=== PATIENT | female | born 1990 | race American Indian/Alaskan Native ===

== ENCOUNTER 2018-11-09 05:15 | Inpatient (IN) | payer OTHER ==
[2018-11-09] MEDS ORDERED: REGLAN IV ONE (06:02)
[2018-11-09] MEDS ORDERED: PEPCID IV ONE (06:02)
[2018-11-09] MEDS ORDERED: BICITRA PO ONE (06:02)
[2018-11-09 06:47] LABS: Basophils % (Auto) 0.4 % (0.0-1.8); Eosinophils # (Auto) 0.1 K/mm3 (0.0-0.4); Eosinophils % (Auto) 1.2 % (0.0-4.3); Hematocrit 35.4 % (30.3-42.9); Hemoglobin 11.9 gm/dl (10.1-14.3); Lymphocytes # (Auto) 1.5 K/mm3 (1.2-5.4); Lymphocytes % (Auto) 21.2 % (13.4-35.0); Mean Corpuscular HGB Conc 34 % (30-34); Mean Corpuscular Volume 90 fl (79-97); Monocytes # (Auto) 0.6 K/mm3 (0.0-0.8); Monocytes % (Auto) 8.9 % (0.0-7.3); Platelet Count 121 K/mm3 (140-440); Red Blood Count 3.95 M/mm3 (3.65-5.03); Red Cell Distribution Width 15.5 % (13.2-15.2)
[2018-11-09] MEDS ORDERED: ANCEF/STERILE WATER 2 GM/20 ML 2 GM/20 ML SYRINGE IV ONE (06:47)
[2018-11-09] MEDS ORDERED: LACTATED RINGERS 1,000 ML IV SCH (07:00)
[2018-11-09] MEDS ORDERED: PITOCin/NS 20 UNIT/1000ML DRIP 20 UNITS/1,000 ML BAG IV SCH ×2 (07:00→10:30)
--- NOTE | 2018-11-09 07:27 | Anesthesia Day of Surgery ---
Anesthesia Day of Surgery - Day of Surgery Patient Examined: Yes Patient H&P Reviewed: Yes Patient is NPO: Yes
--- NOTE | 2018-11-09 07:27 | Anesthesia Consultation ---
Anesthesia Consult and Med Hx Date of service: 11/09/18 - Airway Anesthetic Teeth Evaluation: Good ROM Head & Neck: Adequate Mental/Hyoid Distance: Adequate Mallampati Class: Class II Intubation Access Assessment: Good - Pulmonary Exam CTA: Yes - Cardiac Exam Cardiac Exam: RRR - Pre-Operative Health Status ASA Pre-Surgery Classification: ASA2 Proposed Anesthetic Plan: Spinal - Pulmonary Hx Asthma: No COPD: No Hx Pneumonia: No - Cardiovascular System Hx Hypertension: No - Central Nervous System Hx Seizures: No Hx Psychiatric Problems: No - Endocrine Hx Renal Disease: No Hx End Stage Renal Disease: No Hx Hypothyroidism: No Hx Hyperthyroidism: No - Hematic Hx Anemia: No Hx Sickle Cell Disease: No - Other Systems Hx Alcohol Use: No
[2018-11-09] MEDS ORDERED: DEXMEDETOMIDINE IV ONE (07:35)
--- NOTE | 2018-11-09 07:35 | History and Physical Report ---
History of Present Illness Date of examination: 11/09/18 Date of admission: 11/09/18 05:15 Chief complaint: Term , X2 previous deliveries. Here for c/section. History of present illness: 39+4wks. X2 previous deliveries. 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 History: herpes (On suppressive meds[valtrex]) - Obstetrical History Expected Date of Delivery: 11/12/18 Actual Gestation: 39 Week(s) 4 Day(s) : 4 Para: 3 Hx # Term Pregnancies: 4 Medications and Allergies Allergies Allergy/AdvReac Type Severity Reaction Status Date / Time No Known Allergies Allergy Verified 10/08/13 20:16 Home Medications Medication Instructions Recorded Confirmed Last Taken Type Fluconazole [Diflucan TAB] 150 mg PO ONCE #1 tablet 04/14/15 Unknown Rx Active Meds: Active Medications Ephedrine Sulfate (Ephedrine Sulfate) 10 mg IV Q2M PRN PRN Reason: Hypotension Oxytocin/Sodium Chloride (Pitocin/Ns 20 Unit/1000ml Drip) 20 units in 1,000 mls @ 0 mls/hr IV TITR [place] Lactated Ringer's (Lactated Ringers) 1,000 mls @ 2,250 mls/hr IV PREOP [place] Stop: 11/10/18 07:27 Fentanyl/Bupivacaine/Sodium Chlor (Fentanyl-Bupiv 2 Mcg/Ml-0.125%) 200 mcg in 100 mls @ 12 mls/hr EPIDURAL TITR [place]; Protocol Naloxone HCl (Narcan 2 Mg/2 Ml) 0.2 mg IV Q5M PRN PRN Reason: Respiratory sedation Review of Systems All systems: negative - Vital Signs Vital signs: Vital Signs Temp Pulse Resp BP 98.5 F 70 16 126/76 11/09/18 07:19 11/09/18 07:19 11/09/18 07:19 11/09/18 07:19 Temp Pulse Resp BP Pulse Ox 98.5 F 70 16 126/76 11/09/18 07:19 11/09/18 07:19 11/09/18 07:19 11/09/18 07:19 - Physical Exam Breasts: Positive: deferred Lungs: Positive: Clear to auscultation Abdomen: Positive: normal appearance, soft, distention. Negative: tenderness Uterus: Positive: enlarged. Negative: tender Deep Tendon Reflex Grade: Normal +2 - Obstetrical FHR: category 1 Results Result Diagrams: 11/09/18 06:18 Abnormal lab results 11/09/18 Range/Units 06:18 RDW 15.5 H (13.2-15.2) % Plt Count 121 L (140-440) K/mm3 [place] % (Auto) 8.9 H (0.0-7.3) % All other labs normal. Assessment and Plan - Patient Problems (1) Term Current Visit: Yes Status: Acute (2) Previous delivery, antepartum Current Visit: Yes Status: Acute Plan to address problem: delivery will get underway as soon as team ready.
[2018-11-09] MEDS ORDERED: ZOFRAN ONE (08:20)
[2018-11-09] MEDS ORDERED: NARCAN 2 MG/2 ML IV PRN (08:30)
[2018-11-09] MEDS ORDERED: TYLENOL PO PRN ×2 (08:30→10:30)
[2018-11-09] MEDS ORDERED: COLACE PO PRN (08:30)
[2018-11-09] MEDS ORDERED: NACL 0.9% IR ONE (08:50)
[2018-11-09] MEDS ORDERED: WATER FOR IRRIG STERILE IR ONE (08:50)
[2018-11-09] MEDS ORDERED: fentaNYL-BUPIV 2 MCG/ML-0.125% 200 MCG/100 ML BAG EPIDURAL SCH (09:00)
[2018-11-09] MEDS ORDERED: BENADRYL ONE (09:10)
[2018-11-09] MEDS ORDERED: TORADOL ONE (09:10)
[2018-11-09] MEDS ORDERED: DILAUDID ONE (09:12)
[2018-11-09] MEDS ORDERED: PRENATAL VITAMIN PO SCH (10:00)
[2018-11-09] MEDS ORDERED: SODIUM CHLORIDE FLUSH SYRINGE 10 ML IV PRN (10:00)
--- NOTE | 2018-11-09 10:05 | Operative Report ---
Operative Report Operative Report: Date of surgery: 11/09/2018 Preoperative diagnosis: Term , previous section Postoperative diagnosis: Same Procedure: Elective lower segment transverse section Surgeon: Herman Valiente MD Jewelry Sales Associate: Jimbo Arthur CRNA Anesthesia: Spinal blockade Complications: None EBL: 300 mL Findings: There was a live baby boy in cephalic presentation. Weight was 3133 g, Apgars 8/9. The ovaries and fallopian tubes as well as the uterus were all grossly normal. There were no discernible adhesions within the pelvis. Procedure in details: The patient was taken to the operating room. She was given spinal blockade. She was placed in the straight supine position with a slight left lateral tilt. An indwelling Mims's catheter was inserted. The patient was prepped in the abdomen. The drapes were placed. A timeout was done. With the go ahead from the breaker off, a Pfannenstiel incision was placed over a previously existing scar. The incision was carried across the subcutaneous layer to the fascia which was cut transversely. The recti abdominis muscle flaps were dissected off the fascia using a combination of sharp and blunt dissection. The muscles were in the midline to gain access to the anterior parietal peritoneum: This structure was carefully identified and divided. The laparotomy was widened by stretching. The bladder blade was applied. The uterovescical peritoneal flap was divided transversely. The bladder was displaced caudally. A transverse incision was made in the lower segment of the uterus down to the decidual layer. The uterine incision was extended on both sides using the bandage scissors. The amniotic sac was ruptured with clear fluid. The head of the was lifted out of the false pelvis and delivered through the incision using fundal pressure. The airways were bulb suctioned beginning with the mouth. Gentle traction on the mandibular processes combined with continuing fundal pressure delivered the rest of the baby. The umbilical cord was double clamped and divided. The baby was safely transferred over to the pediatric team. The placenta was manually removed from the uterine cavity. The uterine cavity was further explored and was empty of any placental remnants. The uterine incision was sewn in one layer with #0 Vicryl. Hemostasis along the suture line was very good. Blood and clots were cleared from the peritoneal cavity: Hemostasis again was satisfactory. The anterior parietal peritoneum was closed with number 0 Vicryl. The fascia was closed with #0 Vicryl. The subcutaneous layer was hemostatic. The skin was closed subcuticularly with 4-0 Vicryl on a Misael needle. All sponges and instruments were accounted for. There were no complications. The estimated blood loss was 300 mL. The patient was transferred in very good condition to the recovery room
--- NOTE | 2018-11-09 10:13 | Post Anesthesia Evaluation ---
- Post Anesthesia Evaluation Patient Participated: Yes Airway Patent: Yes Stable Respiratory Function: Yes Nausea/Vomiting: No Temp > 96.8F: Yes Pain Manageable: Yes Adequeate Hydration: Yes Anesthesia Complications: No Block Receding Appropriately: Yes Patient on Ventilator: No
[2018-11-09] MEDS ORDERED: LANSINOH TP PRN (10:30)
[2018-11-09] MEDS ORDERED: ZOFRAN IV PRN (10:30)
[2018-11-09] MEDS ORDERED: TUCKS PAD TP PRN (10:30)
[2018-11-09] MEDS: TORADOL IV PRN ×2 (12:29→17:57)
[2018-11-09] MEDS: MORPHINE IV PRN ×3 (12:30→22:44)
[2018-11-09] MEDS: ANCEF/NS 1 GM/50 ML 1 GM/50 ML BAG IV SCH ×2 (16:04→23:48)
[2018-11-09] MEDS ORDERED: MILK OF MAGNESIA PO PRN (22:00)
[2018-11-09 22:25] LABS: Hematocrit 31.6 % (30.3-42.9); Hemoglobin 10.7 gm/dl (10.1-14.3)
[2018-11-10] MEDS: TORADOL IV PRN ×2 (03:44→09:40)
[2018-11-10] MEDS: FEOSOL PO SCH (09:41)
[2018-11-10] MEDS: IBUPROFEN PO SCH ×2 (12:00→19:20)
--- NOTE | 2018-11-10 14:23 | Progress Note ---
Assessment and Plan A: POD #1 Stable P: Follow Routine PostOp Orders Considering Nexplanon for PP Contraception Subjective - Subjective Date of service: 11/10/18 Patient reports: appetite normal, voiding normally, pain well controlled, flatus, ambulating normally : doing well, bottle feeding (and ) Objective - Vital Signs Latest vital signs: Vital Signs Temp Pulse Resp BP BP Pulse Ox 11/10/18 08:02 98.4 F 67 18 116/45 11/10/18 00:00 98.7 F 72 18 106/75 11/09/18 20:00 98.6 F 64 16 102/78 11/09/18 16:12 98.5 F 67 20 106/63 98 Intake and Output 11/09/18 11/10/18 11/10/18 22:59 06:59 14:59 Intake Total 410 200 480 Output Total 1900 800 700 Balance -1490 -600 -220 Intake: IV 50 ANCEF/NS 1 GM/50 ML 1 gm 50 In 50 ml @ 100 mls/hr IV Q8H [facility] Rx#:[id number] Oral 360 200 480 Output: Urine 1900 800 700 Indwelling Catheter 1900 Void 800 700 Other: Total, Intake Amount 360 200 480 Total, Output Amount 1300 800 700 # Voids Void 1 - Exam Breasts: Present: normal Cardiovascular: Present: Regular rate Lungs: Present: Clear to auscultation, Normal air movement Abdomen: Present: normal appearance, soft, normal bowel sounds Vulva: right: laceration/episiotomy Uterus: Present: normal, firm, fundal height below umbilicus Extremities: Present: normal
[2018-11-10] MEDS: NORCO 5/325 PO PRN ×2 (15:50→22:34)
[2018-11-11] MEDS: IBUPROFEN PO SCH ×2 (05:12→11:07)
[2018-11-11] MEDS: NORCO 5/325 PO PRN ×2 (05:13→12:51)
[2018-11-11 09:08] VITALS: BP 114/76
[2018-11-11] MEDS: FEOSOL PO SCH (11:07)
--- NOTE | 2018-11-11 12:25 | Progress Note ---
Assessment and Plan A: POD #1 s/p Repeat c/s Stable P: Follow Routine PostOp Orders Considering Nexplanon for PP Contraception Subjective - Subjective Date of service: 11/11/18 Principal diagnosis: POD#2 s/p Repeat c/s Interval history: See H&P and delivery note Patient reports: appetite normal, voiding normally, pain well controlled, flatus, ambulating normally, no bowel movement [place]: doing well, other (breast/bottle) Objective - Vital Signs Latest vital signs: Vital Signs Temp Pulse Resp BP 11/11/18 08:14 97.9 F 66 18 114/76 11/11/18 00:30 98.7 F 78 16 112/72 11/10/18 16:22 98.4 F 63 18 120/69 Intake and Output 11/10/18 11/11/18 11/11/18 23:59 07:59 15:59 Intake Total 480 480 Balance 480 480 Intake: Oral 480 480 Other: Total, Intake Amount 480 480 - Exam Breasts: Present: normal, Cardiovascular: Present: Regular rate, Normal S1, Normal S2, No murmurs Lungs: Present: Clear to auscultation, Normal air movement Abdomen: Present: normal appearance, soft, tenderness (as expected post-op), normal bowel sounds. Absent: distention Vulva: both: normal Uterus: Present: firm, fundal height at umbilicus Extremities: Present: normal Deep Tendon Reflex Grade: Normal +2 Incision: Present: normal (LTI closed with SQ sutures and steri strips CDI), dry, intact
--- NOTE | 2018-11-11 12:26 | Discharge Summary ---
Providers - Providers Date of Admission: 11/09/18 05:15 Date of discharge: 11/11/18 Attending physician: BRET CHRISTIAN MD Primary care physician: BRET CHRISTIAN MD Hospitalization Reason for admission: IUP at term Delivery: Procedure: repeat low transverse Procedure details: See H&P and operative note Incision: normal (LTI, closed with SQ sutures and steri strips), dry, intact complications: none Discharge diagnosis: IUP at term delivered baby: male Condition at discharge: Good Disposition: DC-01 TO HOME OR SELFCARE Plan - Discharge Medications Prescriptions: HYDROcodone/APAP 5-325 [[place] 5/325] 1 - 2 each PO Q4HR PRN 7 Days #30 tablet PRN Reason: Pain - Provider Discharge Summary Activity: routine, no sex for 6 weeks, no heavy lifting 4 weeks, no strenuous exercise Diet: routine Instructions: routine Additional instructions: [] Smoking cessation referral if applicable(refer to patient education folder for contact #) [] Refer to [facility] Booklet Call your doctor immediately for: * Fever > 100.5 * Heavy vaginal bleeding ( >1 pad per hour) * Severe persistent headache * Shortness of breath * Reddened, hot, painful area to leg or breast * Drainage or odor from incision. * Keep incision clean and dry at all times and follow doctor's instructions regarding bathing/showering - Follow up plan Follow up: BRET CHRISTIAN MD [Primary Care Provider] - 7 Days
== END 2018-11-11 14:25 | disposition home or self-care (01) | DRG 766 ==
LOC: APU 05:15 → OB 11:20
PROVIDERS: ADMIT Obstetrics & Gynecology; ATTEND Obstetrics & Gynecology
PROC: 10D00Z1 Extraction of Products of Conception, Low, Open Approach (ICD-10-PCS; principal; 2018-11-09)
DX: O34.211 Maternal care for low transverse scar from previous cesarean delivery (principal); Z37.0 Single live birth; Z3A.39 39 weeks gestation of pregnancy
CPT/HCPCS: 36415; 85014; 85018; 85025; 86850; 86900; 86901; G0378; J0690; J1170; J1200; J1885; J2270; J2405; J2590; J2765; J3490; J7120